=== PATIENT | female | born 1985 | race Caucasian/White ===

== ENCOUNTER 2018-01-18 13:51 | Emergency (ER) | payer OTHER ==
[~2018-01-18] VITALS: Ht 152.4 cm; Wt 88.5 kg
[~2018-01-18 13:51] MED LIST: ALBIPROI INH; ALBU.083IS IH; ALBU4 PO; ALBU90OI INH; AMOX500 PO; CEPH500 PO; FLUT.05NI; GUAI600T33 PO; HYDACE5 PO; IBUP200; IBUP800 PO; MEDR150I; OXYACE5T PO; PHENA200 PO; PRED10 PO; PRED20 PO; RXIBUP800 PO; RXOXYACE PO; SULTRIDS PO; Veetids 500500 MG PO; [UNRECOGNIZED DRUG - OTHER]
[2018-01-18 14:15] LABS: BASOPHILS ABSOLUTE AUTO 0.05 K/mm3 (0.00-0.23); BASOPHILS PERCENT AUTO 0 % (0-2); EOSINOPHILS ABSOLUTE AUTO 0.29 K/mm3 (0.00-0.68); EOSINOPHILS PERCENT AUTO 2 % (0-6); Hematocrit 43.1 % (33.0-51.0); Hemoglobin 14.7 g/dL (11.5-16.0); IMMATURE GRAN ABSOLUTE AUTO 0.09 K/mm3 (0.00-0.10); IMMATURE GRAN PERCENT AUTO 1 % (0-1); LYMPHOCYTES PERCENT AUTO 14 % (21-46); MONOCYTES PERCENT AUTO 5 % (4-13); Mean Corpuscular HGB 29.9 pg (26.0-34.0); Mean Corpuscular HGB Conc 34.1 g/dL (31.5-36.5); Mean Corpuscular Volume 88 fL (80-100); Mean Platelet Volume 10.2 fL (9.1-12.4); NEUTROPHILS ABSOLUTE AUTO 13.05 K/mm3 (1.96-9.15); NEUTROPHILS PERCENT AUTO 78 % (41-73); Platelet Count 303 K/mm3 (150-400); RDW Coefficient Variation 12.2 % (11.7-14.2); RDW Standard Deviation 39.4 fL (35.1-46.3); Red Blood Cell Count 4.91 M/mm3 (3.80-5.20); White Blood Cell Count 16.68 K/mm3 (4.00-11.30)
[2018-01-18 14:23] LABS: Prothrombin Time Results 10.4 Sec (9.7-11.5)
[2018-01-18 14:32] LABS: Alanine Aminotransfer (ALT/SGP 27 U/L (12-78); Alk Phos 74 U/L (50-136); Anion Gap 3 mmol/L (6-16); Aspartate Aminotrans (AST/SGOT 17 U/L (12-37); Bilirubin, Total 0.3 mg/dL (0.1-1.0); Blood Urea Nitrogen 12 mg/dL (8-24); Bun/Creatinine Ratio 15.9 (12.0-20.0); CO2, Blood 28 mmol/L (21-32); Calcium, Blood 8.6 mg/dL (8.5-10.1); Chloride, Blood 108 mmol/L (98-108); Creatinine, Blood 0.76 mg/dL (0.40-1.00); Glomerular Filtration Rate >60 (60-); Glucose, Blood 114 mg/dL (70-99); Potassium, Blood 3.8 mmol/L (3.5-5.5); Sodium, Blood 139 mmol/L (136-145)
[2018-01-18] MEDS ORDERED: QVAR REDIHALE10.6 G1 PO (14:39)
[2018-01-18] MEDS ORDERED: ALBU90OI INH (14:39)
[2018-01-18] MEDS ORDERED: CRUTCH2 XX ×2 (15:30→15:45)
[2018-01-18] MEDS ORDERED: Norco 5-325 Ta1 EACH PO (15:30)
== END 2018-01-18 16:01 | disposition home or self-care (01) ==
LOC: ER 13:51
PROVIDERS: Internal Medicine
DX: S82.431A Displaced oblique fracture of shaft of right fibula, initial encounter for closed fracture (principal); S81.812A Laceration without foreign body, left lower leg, initial encounter; J45.909 Unspecified asthma, uncomplicated; Z79.899 Other long term (current) drug therapy; W55.12XA Struck by horse, initial encounter
CPT/HCPCS: 12002; 29505; 36415; 73590; 80053; 85025; 85610; 90471; 90714; 96374; 96375; 96376; 99284; J2405; J3010

== ENCOUNTER → 2018-02-01 | Outpatient (CLI) | payer OTHER ==
[~2018-02-01] MED LIST changes: +CRUTCH2 XX; +Norco 5-325 Ta1 EACH PO; +QVAR REDIHALE10.6 G1 PO
== END | disposition home or self-care (01) ==
LOC: OLS 08:59 → LAB SHORT 08:59
DX: Z01.812 Encounter for preprocedural laboratory examination (principal); S82.899A Other fracture of unspecified lower leg, initial encounter for closed fracture
CPT/HCPCS: 81025

== ENCOUNTER 2018-02-02 11:26 | Day surgery (SDC) | payer OTHER ==
[~2018-02-02] VITALS: Ht 152.4 cm; Wt 89.6 kg
== END 2018-02-02 16:10 | disposition home or self-care (01) ==
LOC: ORSCSDS 11:26
PROVIDERS: Podiatrist Foot & Ankle Surgery
PROC: 0QSG04Z Reposition Right Tibia with Internal Fixation Device, Open Approach (ICD-10-PCS; principal; 2018-02-02 13:00)
PROC: 0QSJ04Z Reposition Right Fibula with Internal Fixation Device, Open Approach (ICD-10-PCS; principal; 2018-02-02 13:00)
DX: S82.401A Unspecified fracture of shaft of right fibula, initial encounter for closed fracture (principal); J45.909 Unspecified asthma, uncomplicated; M06.9 Rheumatoid arthritis, unspecified; Z79.899 Other long term (current) drug therapy; E66.9 Obesity, unspecified; Z68.37 Body mass index [BMI] 37.0-37.9, adult
CPT/HCPCS: C1713; J0171; J0690; J1100; J2250; J2405; J2765; J3010

== ENCOUNTER → 2025-09-02 | Outpatient (CLI) | payer OTHER ==
[2025-09-02 19:58] LABS: BASOPHILS ABSOLUTE AUTO 0.03 K/mm3 (0.00-0.23); BASOPHILS PERCENT AUTO 0 % (0-2); EOSINOPHILS ABSOLUTE AUTO 0.22 K/mm3 (0.00-0.68); EOSINOPHILS PERCENT AUTO 2 % (0-6); Hematocrit 40.8 % (33.0-51.0); Hemoglobin 14.0 g/dL (11.5-16.0); IMMATURE GRAN ABSOLUTE AUTO 0.03 K/mm3 (0.00-0.10); IMMATURE GRAN PERCENT AUTO 0 % (0-1); LYMPHOCYTES ABSOLUTE AUTO 2.87 K/mm3 (0.84-5.20); LYMPHOCYTES PERCENT AUTO 29 % (21-46); MONOCYTES ABSOLUTE AUTO 0.53 K/mm3 (0.16-1.47); MONOCYTES PERCENT AUTO 5 % (4-13); Mean Corpuscular HGB Conc 34.3 g/dL (31.5-36.5); Mean Corpuscular Volume 88 fL (80-100); NEUTROPHILS ABSOLUTE AUTO 6.36 K/mm3 (1.96-9.15); NEUTROPHILS PERCENT AUTO 63 % (41-73); NRBC ABSOLUTE 0.00 K/mm3 (0.00-0.02); NRBC Auto 0.0 /100 WBC (0.0-0.2); Platelet Count 279 K/mm3 (150-400); RDW Coefficient Variation 12.1 % (11.7-14.2); RDW Standard Deviation 39.1 fL (35.1-46.3)
[2025-09-03 13:01] LABS: Alanine Aminotransfer (ALT/SGP 45.0 U/L (12-78); Albumin, Blood 3.9 g/dL (3.4-5.0); Albumin/Globulin Ratio 1.1 (0.8-1.8); Anion Gap 8.0 mmol/L (3-11); Aspartate Aminotrans (AST/SGOT 19.0 U/L (12-37); Bilirubin, Total 0.3 mg/dL (0.1-1.0); Blood Urea Nitrogen 15.0 mg/dL (8-24); CO2, Blood 24.0 mmol/L (21-32); Calcium, Blood 8.7 mg/dL (8.5-10.1); Chloride, Blood 110.0 mmol/L (98-108); Creatinine, Blood 0.69 mg/dL (0.40-1.00); Globulin, Blood 3.4 g/dL (2.2-4.0); Glucose, Blood 97.0 mg/dL (70-99); Potassium, Blood 3.3 mmol/L (3.5-5.5); Sodium, Blood 139.0 mmol/L (136-145); Thyroid Stimulating Hormone 0.93 uIU/mL (0.360-4.800); Total Protein, Blood 7.3 g/dL (6.4-8.2)
== END | disposition home or self-care (01) ==
LOC: LAB 19:49 → LAB SHORT 19:49
PROVIDERS: Nurse Practitioner Family
DX: R53.81 Other malaise (principal)
CPT/HCPCS: 80053; 84443; 85025